=== PATIENT | male | born 1950 | race Caucasian/White ===

== ENCOUNTER → 2017-04-20 | Outpatient (CLI) | payer OTHER | LOC: MRI 07:07 | DX: S83.282A Other tear of lateral meniscus, current injury, left knee, initial encounter (principal); X58.XXXA Exposure to other specified factors, initial encounter; Y93.89 Activity, other specified; Y92.89 Other specified places as the place of occurrence of the external cause; Y99.8 Other external cause status; M71.22 Synovial cyst of popliteal space [Baker], left knee; M25.462 Effusion, left knee ==

== ENCOUNTER 2018-07-07 05:27 | Inpatient (IN) | payer OTHER ==
[~2018-07-07] VITALS: Ht 177.8 cm; Wt 85.3 kg
[2018-07-07] VITALS (8 sets, daily range): BP systolic 144–155; BP diastolic 86–99
--- NOTE | ~2018-07-07 | PATH ---
[facility] [address] [place] [address] PATHOLOGY RPT PROCEDURE Name: MEENA CRISTINA Room #: 227-P DIS IN M.R.#: [id number] Admission: 07/07/18 Date of : 46 Discharge: 07/12/18 Report #: [id number] Path Case #: [id number] [facility] Accession Number: [id number] . 01 Material submitted: . ABDOMINAL MESH . 01 Clinical history: . Ventral hernia . 02 Diagnosis: Fibroadipose tissue and mesh "abdominal mesh": - Fibroadipose tissue revealing hemorrhage, fibrosis, and chronic inflammation. - Grossly described abdominal mesh. (SHA:jovanna; 07/12/2018) QMS/07/12/2018 . 02 Electronically signed: . Ganga Quiñones MD, Pathologist NPI- [id number] . 01 Gross description: . The specimen is received in formalin, labeled "Meena Cristina abdominal mesh". Received are multiple segments of white-edwards mesh with adherent yellow-edwards, lobulated to pink-montelongo, fibromembranous tissue measuring 12.5 x 7.8 x 1.5 cm in aggregate dimensions. Reconciling Clerk sections of soft tissue are submitted in cassette A1. Gross photographs are taken. (CAA; 07/11/2018) QAC/QAC . 02 Pathologist provided ICD-10: K43.9 . 02 CPT . 989234 Specimen Comment: A courtesy copy of this report has been sent to Specimen Comment: [phone], . Specimen Comment: Report sent to / DR MEDEIROS Specimen Comment: A duplicate report has been generated due to demographic updates. Performed at: [address] [id number] MD Wood Dickerson MD Phone: [phone] Performed at: [address] [address] PATHOLOGY RPT PROCEDURE Name: MEENA CRISTINA Room #: 227-P DIS IN M.R.#: [id number] Admission: 07/07/18 Date of : 46 Discharge: 07/12/18 Report #: [id number] Path Case #: [id number] [address] [place] [id number] MD Silvia Hodge MD Phone: [phone]
[~2018-07-07 05:27] MED LIST: ASPIR 8181 MG PO; BONE ESSENT166.75 MG PO; COLLAGEN PLUS1 EACH PO; CRESTOR5 MG PO; MULTIVITAMINS PO; PROGRAF5 MG PO; VITAMIN B-12500 MCG PO; VITAMIN D1000 UNI1 PO; VITAMINC500 PO
[2018-07-07 10:30] LABS: HEMATOCRIT 41.1 % (42.0-52.0); HEMOGLOBIN 14.5 gm/dL (14.0-18.0)
[2018-07-07 10:48] LABS: CALCIUM 9.2 mg/dL (8.5-10.1); POTASSIUM 4.2 mmol/L (3.5-5.1)
[2018-07-07 10:52] LABS: ALBUMIN 4.1 g/dL (3.4-5.0); TOTAL BILIRUBIN 1.4 mg/dL (<0.1-1.0); TOTAL PROTEIN 7.7 g/dL (6.4-8.2)
[2018-07-07 11:21] LABS: PROTIME 10.7 Seconds (9.3-11.4)
[2018-07-07] MEDS ORDERED: TACROLIMUS5 MG PO (19:13)
[2018-07-07] MEDS ORDERED: TACROLIMUS1 MG PO (20:00)
[2018-07-07] MEDS ORDERED: PROGRAF1 MG PO (20:02)
[2018-07-08 06:39] LABS: HEMOGLOBIN 14.5 gm/dL (14.0-18.0); MCH 31.4 pg (26.0-34.0); MCHC 33.7 g/dL (28.0-37.0); MCV 93.4 fL (80.0-100.0); RBC 4.6 mil/uL (4.50-6.00); RDW 13.2 % (10.5-14.5); WBC 11.8 thou/uL (4.0-11.0)
[2018-07-08 06:51] LABS: CALCIUM 8.5 mg/dL (8.5-10.1); POTASSIUM 4.7 mmol/L (3.5-5.1)
[2018-07-08 07:45] VITALS: BP 166/98
[2018-07-08 14:15] VITALS: BP 130/84
[2018-07-08 20:00] VITALS: BP 151/84
[2018-07-09 00:27] VITALS: BP 137/77
[2018-07-09 04:37] VITALS: BP 156/66
[2018-07-09 05:18] LABS: ABSOLUTE NEUTROPHILS 6.2 thou/uL (1.4-8.2); BASOPHILS 0.4 % (0.0-2.0); EOSINOPHILS 1.1 % (0.0-3.0); HEMATOCRIT 36.2 % (42.0-52.0); HEMOGLOBIN 12.8 gm/dL (14.0-18.0); LYMPHOCYTES 13.3 % (24.0-44.0); MCH 32.7 pg (26.0-34.0); MCHC 35.4 g/dL (28.0-37.0); MCV 92.4 fL (80.0-100.0); MONOCYTES 9.8 % (1.0-8.0); PLATELET COUNT 153 thou/uL (150-400); POLYS 75.4 % (36.0-66.0); RBC 3.92 mil/uL (4.50-6.00); RDW 13.5 % (10.5-14.5); WBC 8.3 thou/uL (4.0-11.0)
[2018-07-09 05:39] LABS: CALCIUM 8.2 mg/dL (8.5-10.1); CREATININE 0.9 mg/dL (0.7-1.3); POTASSIUM 3.8 mmol/L (3.5-5.1)
[2018-07-09 08:00] VITALS: BP 167/92
[2018-07-09 15:00] VITALS: BP 144/107
[2018-07-09 19:50] VITALS: BP 147/78
[2018-07-10 03:00] VITALS: BP 151/91
[2018-07-10 07:16] VITALS: BP 153/86
[2018-07-10 07:44] LABS: ABSOLUTE NEUTROPHILS 5.1 thou/uL (1.4-8.2); BASOPHILS 0.6 % (0.0-2.0); HEMATOCRIT 36.9 % (42.0-52.0); HEMOGLOBIN 12.8 gm/dL (14.0-18.0); LYMPHOCYTES 16.6 % (24.0-44.0); MCH 31.9 pg (26.0-34.0); MCHC 34.6 g/dL (28.0-37.0); MCV 92.2 fL (80.0-100.0); MONOCYTES 10.5 % (1.0-8.0); PLATELET COUNT 171 thou/uL (150-400); POLYS 69.3 % (36.0-66.0); RBC 4.01 mil/uL (4.50-6.00); RDW 13.4 % (10.5-14.5); WBC 7.3 thou/uL (4.0-11.0)
[2018-07-10 08:01] LABS: CALCIUM 9.3 mg/dL (8.5-10.1); CREATININE 0.9 mg/dL (0.7-1.3); POTASSIUM 4.1 mmol/L (3.5-5.1)
[2018-07-10 14:53] VITALS: BP 122/91
[2018-07-10 19:37] VITALS: BP 126/83
[2018-07-11 04:13] VITALS: BP 131/79
[2018-07-11 05:21] LABS: HEMATOCRIT 35.3 % (42.0-52.0); MCH 31.3 pg (26.0-34.0); MCHC 33.9 g/dL (28.0-37.0); MCV 92.3 fL (80.0-100.0); RBC 3.82 mil/uL (4.50-6.00); RDW 13.2 % (10.5-14.5); WBC 5.5 thou/uL (4.0-11.0)
[2018-07-11 05:35] LABS: CALCIUM 8.6 mg/dL (8.5-10.1); CREATININE 0.9 mg/dL (0.7-1.3); POTASSIUM 4.1 mmol/L (3.5-5.1)
[2018-07-11 07:28] VITALS: BP 140/79
[2018-07-11 22:54] VITALS: BP 145/93
[2018-07-12 04:01] VITALS: BP 136/90
[2018-07-12 08:19] VITALS: BP 130/85
[2018-07-12 14:05] VITALS: BP 130/85
== END 2018-07-12 16:00 | disposition home or self-care (01) | DRG 336 ==
LOC: TBA 05:27 → 4W 05:27 → PRE 10:59 → OR 14:27 → EDSTATUS 14:31 → PRE 14:32 → 4W 17:43 → SICU 07-11 15:19 → ENTRNSPT 07-12 14:50 → EDTRNSPTSTS 07-12 14:59 → SICU 07-12 16:00
PROVIDERS: Anesthesiology; Surgery
DX: K43.0 Incisional hernia with obstruction, without gangrene (principal); Z94.4 Liver transplant status; E78.00 Pure hypercholesterolemia, unspecified; D89.9 Disorder involving the immune mechanism, unspecified; I10 Essential (primary) hypertension; E78.5 Hyperlipidemia, unspecified; J44.9 Chronic obstructive pulmonary disease, unspecified; Z90.49 Acquired absence of other specified parts of digestive tract; Z86.19 Personal history of other infectious and parasitic diseases
CPT/HCPCS: 10045; 10047; 15002; 50010; 50093; 50101; 50331; 50386; 50455; 50953; 51412; 51437; 56524; 56525; 56527; 57092; 57193; 62110; 62900; 65075; 70005